=== PATIENT | female | born 1960 | race Caucasian/White ===

== ENCOUNTER 2020-06-27 07:39 | Day surgery (SDC) | payer OTHER, SELFPAY ==
[2020-05-30 14:05] VITALS: BMI 30.5
--- NOTE | 2020-06-27 | GASB_PTH ---
PATIENT: BERONICA CALLAHAN LOC: EN U#:[id number] AGE/SX: 60/F ROOM: RE06/27/[address]: Dr. Remington León MD : 1960 BED: DIS: 06/27/2020 SPEC #: [id number] RECD: 06/27/20 13:45 STATUS: MAURISIO REChase #: [id number] TARA: 06/27/20 00:[address]: Remington León DEPT: SURGICAL PATHOLOGY RECD BY: Franklin Reynoso ENTERED: 06/28/20 08:39 SP TYPE: Gastric Bx OTHR DR: Dr. Farhana Stauffer, DO Tissues: Gastric mucous membrane Procedures: Surgery Specimen Level IV HEADER OPERATION: Colonoscopy, EGD ([facility]) PRE-OP DIAGNOSIS: Abdominal pain, screening TISSUE SUBMITTED: Antral biopsy for H. pylori and pathology MICROSCOPIC DIAGNOSIS Gastric antrum, biopsy: Chronic gastritis. AM:terrie 06/29/20 COMMENT The results of immunohistochemistry for Helicobacter pylori will be reported separately ([id number]). MICROSCOPIC DESCRIPTION Slides are reviewed. GROSS DESCRIPTION Received in fixative is one container labeled with the patient's name and designated antral biopsy. The specimen consists of one irregular fragment of light pisano soft tissue that measures 0.5 x 0.3 x 0.1 cm. The specimen is totally submitted in one cassette. / SJ:rg 06/28/20 TC:3 CPT: 58483
--- NOTE | 2020-06-27 06:28 | HP_ITS ---
Intake Vital Signs 05/30/20 Height 5 ft 3.5 in 05/30/20 Weight: 175 lb 05/30/20 BP 151/92 H 05/30/20 Blood Pressure Location Rt brachial 05/30/20 Position Sitting 05/30/20 Respiration 16 Intake Visit Reasons: EGD/ CSCOPE Chief Complaint: egd/c-scope Take Out Waitress Required: No Is patient in pain?: No Allergies No Known Allergies Allergy (Unverified 05/30/20 14:05) Medications omeprazole 20 mg capsule,delayed release ea PO 05/30/20 [History Confirmed 05/30/20] sucralfate 1 gram tablet PO 05/30/20 [History Confirmed 05/30/20] [facility] Medical History Basal cell carcinoma (Acute) Epigastric pain (Acute) Fibroids (Acute) Hemorrhoids (Acute) Surgical History History of breast surgery (Acute) S/P LEEP (Acute) S/P appendectomy (Acute) S/P hysterectomy (Acute) Family History Aunt Diabetes Breast cancer Father Hypertension Social History (Updated 06/01/20 @ 09:[address] Remington León MD) Smoking Status: Never smoker alcohol intake: current alcohol intake frequency: a few times a month HPI HPI Surgical H&P: Yes HPI: BERONICA CALLAHAN, is a 60 F who presents to the office today for Evaluation for endoscopy. I performed a colonoscopy on her back in December 2009. She was noted to have some internal hemorrhoids as well as external hemorrhoids. She had no lesions and I did not even mention Any diverticular disease. Patient had recently been to the emergency department with a complaint of intermittent epigastric abdominal pain over the last several months. And pressure-like in nature comes and goes. She denies any fever chills weight loss or radiation of her pain. She has had no nausea vomiting diarrhea. She has never had an EGD. Most recent hemoglobin completed on 05/24/2020 was 12.8. Platelet count was slightly lower at 130 she had a normal WBC count. When she traveled to the emergency department she had a CAT scan of her abdomen and pelvis which was negative for any acute intra-abdominal or pelvic abnormalities. She did have a 7 mm cyst in the pancreatic head. She was subsequently sent home on Carafate and omeprazole. ROS General General: No weight change, appetite, fatigue, colon cancer, breast cancer or weakness HEENT HEENT: No difficulty swallowing, eye injury, eye surgery, swollen glands or hoarseness Skin Skin: No rash or changing moles Breast Breast: No left breast lump, right breast lump, nipple discharge, breast pain, abnormal mammogram, abnormal US or breast enlargement Musc Musculoskeletal: No back problems, arthritis, rheumatoid arthritis, gout or joint pain Cardio Cardiovascular: No murmur, pacemaker, heart disease, atrial fibrillation, high blood pressure, heart attack, heart stent, palpitations, shortness of breat with exertion or chest pain Psych Psychiatric: No depression, anxiety or hearing voices Resp Respiratory: No shortness of breath, No sleep apnea, No cough, No COPD, No asthma, No emphysema, No wheezing Gastro Gastrointestinal: Yes abdominal pain, No nausea or vomiting, No diarrhea, Yes constipation, No blood in stool, No acid reflux, Yes hemorrhoids, No ulcers, No gallbladder problem, No black,tarry stools Bruno Hematologic: No blood thinners, No blood disorders, No bleeding, No anemia, No blood clots Neuro Neurologic: No system reviewed and no additional complaints, except as docu, No as per HPI, No abnormal walking, No abnormal hearing, No abnormal movements, No abnormal speech, No behavioral changes, No burning sensations, No confusion, No seizure-like activity, No unsteadiness, No dizziness, No localized weakness, No frequent falls, No headache(s), No lack of coordination, No loss of vision, No memory loss, No numbness, No other visual disturbances, No radiating pain, No restless legs, No sensory deficit, No fainting, No tingling, No tremor(s), No weakness, No other Exam Const General: no acute distress, well developed, well hydrated Orientation: oriented to person, oriented to place, oriented to time [facility] Head: normocephalic, atraumatic Ears: external ears normal Mouth: moist mucous membranes Eyes Sclera: sclerae normal Pupils: normal by confrontation Neck Neck: no lymphadenopathy noted Neck mass: No Thyroid: thyroid normal, symmetrical Chest Chest palpation & inspection: normal inspection of the chest Breast Palpation: No nipple discharge Resp Effort & Inspection: normal respiratory effort Auscultation: clear to auscultation bilaterally Percussion: percussion normal Cardio Rate: regular rate Rhythm: regular rhythm Heart Sounds: no murmurs GI Palpation: soft, no hepatosplenomegaly, no masses, nontender Rectal Exam: other Other: Rectal exam deferred. Extrem General: normal to inspection, no clubbing, cyanosis or edema Assessment & Plan Problems 1. Encounter for screening colonoscopy Z12.11 2. Epigastric abdominal pain R10.13 Plan I have discussed the above with the patient. I have offered the patient colonoscopy As well as an EGD for evaluation. I have explained the risks/benefits of the procedure and described the procedure. I have discussed the risks with the patient, including but not limited to: infection, bleeding, perforation of the GI tract requiring emergency surgery, inability to complete the procedure, injury to any internal organs, complications of anesthesia, etc. - the patient understands and agrees to proceed. I have answered all the patient's questions to the patient's satisfaction and the patient has no further questions. The patient has been given instructions for the colon cleansing preparation. Coding Level of Care Code Off vis,new,level 3 Diagnoses Encounter for screening colonoscopy Z12.11 Epigastric abdominal pain R10.13 COVID (Procedure Consent) Procedure Criteria Procedure Criteria: Yes Elective The surgeon/proceduralist and patient have discussed in detail the risk of exposure to and/or potential harm posed by the COVID-19 virus with having a surgery/procedure at this time versus the risk of? delaying the surgery/procedure. It is not possible to know either the risk of delaying the surgery or procedure or chance of getting an infection with perfect accuracy, but a joint decision was made between the patient and the surgeon/proceduralist ?to proceed at this time with the scheduled surgery/procedure as indicated on the consent form. I have re-examined the patient. There are no clinical changes since date of exam.
[2020-06-27 08:11] VITALS: BP 155/89; PULSE 87; RESP 16; TEMP 36.5; O2SAT 100
[2020-06-27] MEDS: Lactated Ringers 1,000 ML 100 ML IV (08:25)
--- NOTE | 2020-06-27 09:00 | IMM_PTH ---
PATIENT: BERONICA CALLAHAN LOC: EN U#:[id number] AGE/SX: 60/F ROOM: RE06/27/[address]: Dr. Remington León MD : 1960 BED: DIS: 06/27/2020 SPEC #: [id number] RECD: 06/28/20 08:40 STATUS: SOUAditya REQ #: [id number] TARA: 06/27/20 09:[address]: Remington León DEPT: IMMUNOHISTOCHEMISTRY RECD BY: Selma Cheney ENTERED: 06/28/20 08:40 SP TYPE: IMMUNO OTHR DR: Dr. Farhana Stauffer, DO Tissues: Stomach, NOS Procedures: H Pylori (initial) PHYSICIAN & INSTITUTION [place] [id number] SPECIMEN INFORMATION: Tissue Source: Antral biopsy Clinical Info: Abdominal pain; screening Specimen Number: [id number] CPT code: 71106 METHODOLOGY: Deparaffinized sections of prefer/formalin-fixed tissue or PAP/DQ stained slides are incubated with monoclonal/polyclonal antibodies/oligonucleotide probes. Localization is made via biotin free immunoperoxidase method. Appropriate controls are performed and reacted as expected. Results on target cell population are indicated in the following table: RESULTS: ANTIBODY / CLONE RESULT H Pylori (polyclonal) negative These tests were developed and their performance characteristics determined by [facility]. They may not have been cleared or approved by the U.S. Food and Drug Administration. The FDA has determined that such clearance or approval is not necessary. INTERPRETATION: Antral biopsy: Negative for Helicobacter pylori organisms. AM:terrie 06/29/20
[2020-06-27 09:24] VITALS: BP 121/73; BP 155/89; PULSE 88; RESP 18; TEMP 36.7; O2SAT 99
--- NOTE | 2020-06-27 09:25 | OP.EGD_ITS ---
Patient Name: Negar Denis Procedure Date: 06/27/2020 8:54 AM Date of : 1960 Age: 60 Procedure: Upper GI endoscopy Indications: Epigastric abdominal pain Providers: Remington León MD Referring MD: Remington León MD Medicines: See the Anesthesia note for documentation of the administered medications Patient Profile: This is a 60 year old female. Refer to note in patient chart for documentation of history and physical. Complications: No immediate complications. Procedure: Pre-Anesthesia Assessment: - Prior to the procedure, a History and Physical was performed, and patient medications and allergies were reviewed. The patient's tolerance of previous anesthesia was also reviewed. The risks and benefits of the procedure and the sedation options and risks were discussed with the patient. All questions were answered, and informed consent was obtained. Prior Anticoagulants: The patient has taken no previous anticoagulant or antiplatelet agents. ASA Grade Assessment: II - A patient with mild systemic disease. After reviewing the risks and benefits, the patient was deemed in satisfactory condition to undergo the procedure. After obtaining informed consent, the endoscope was passed under direct vision. Throughout the procedure, the patient's blood pressure, pulse, and oxygen saturations were monitored continuously. The gastroscope was introduced through the mouth, and advanced to the second part of duodenum. The upper GI endoscopy was accomplished without difficulty. The patient tolerated the procedure well. Scope In: 9:05:57 AM Scope Out: 9:08:32 AM Total Procedure Duration Time 0 hours 2 minutes 35 seconds Findings: The examined esophagus was normal. No biopsies or other specimens were collected for this exam. The Z-line was regular and was found 40 cm from the incisors. Localized minimal inflammation characterized by erythema was found in the prepyloric region of the stomach. Biopsies were taken with a cold forceps for Helicobacter pylori testing. The examined duodenum was normal. No biopsies or other specimens were collected for this exam. Impression: - Normal esophagus. No specimens collected. - Z-line regular, 40 cm from the incisors. - Gastritis. Biopsied. - Normal examined duodenum. No specimens collected. Recommendation: - Discharge patient to home. - Resume previous diet. - Continue present medications. - Await pathology results. - Repeat upper endoscopy (date not yet determined) for surveillance. - Telephone my office for pathology results in 1 week. Procedure Code(s): --- Professional --- 56923, Esophagogastroduodenoscopy, flexible, transoral; with biopsy, single or multiple Diagnosis Code(s): --- Professional --- K29.70, Gastritis, unspecified, without bleeding R10.13, Epigastric pain CPT copyright 2017 [employer]. All rights reserved. The codes documented in this report are preliminary and upon finisher accordion review may be revised to meet current compliance requirements. MD Remington Lazo MD 06/27/2020 9:24:56 AM This report has been signed electronically. Number of Addenda: 0 Note Initiated On: 06/27/2020 8:54 AM
--- NOTE | 2020-06-27 09:25 | OP.CCLET_ITS ---
06/27/2020 Farhana Stauffer Do Re : Upper GI endoscopy procedure for Negar Denis Dear Dr. Stauffer This procedure was performed on Saturday, June 27, 2020. My impressions and recommendations are as follows: Impressions : - Normal esophagus. No specimens collected. - Z-line regular, 40 cm from the incisors. - Gastritis. Biopsied. - Normal examined duodenum. No specimens collected. Recommendations : - Discharge patient to home. - Resume previous diet. - Continue present medications. - Await pathology results. - Repeat upper endoscopy (date not yet determined) for surveillance. - Telephone my office for pathology results in 1 week. My findings are described in the full procedure note, which is enclosed. If I can be of further assistance, please feel free to contact me at Doctor phone number(s): , Fax: [phone], Work: . Sincerely, MD Remington Lazo MD 06/27/2020 9:24:56 AM This report has been signed electronically.
--- NOTE | 2020-06-27 09:27 | OP.COLON_ITS ---
Patient Name: Negar Denis Procedure Date: 06/27/2020 9:08 AM Date of : 1960 Age: 60 Procedure: Colonoscopy Indications: Screening for colorectal malignant neoplasm Providers: Remington León MD Referring MD: Remington León MD Medicines: See the Anesthesia note for documentation of the administered medications Patient Profile: This is a 60 year old female. Refer to note in patient chart for documentation of history and physical. Last Colonoscopy: more than 10 years ago. Complications: No immediate complications. Procedure: Pre-Anesthesia Assessment: - Prior to the procedure, a History and Physical was performed, and patient medications and allergies were reviewed. The patient's tolerance of previous anesthesia was also reviewed. The risks and benefits of the procedure and the sedation options and risks were discussed with the patient. All questions were answered, and informed consent was obtained. Prior Anticoagulants: The patient has taken no previous anticoagulant or antiplatelet agents. ASA Grade Assessment: II - A patient with mild systemic disease. After reviewing the risks and benefits, the patient was deemed in satisfactory condition to undergo the procedure. After I obtained informed consent, the scope was passed under direct vision. Throughout the procedure, the patient's blood pressure, pulse, and oxygen saturations were monitored continuously. The adult colonoscope was introduced through the anus and advanced to the cecum, identified by appendiceal orifice and ileocecal valve. The colonoscopy was performed without difficulty. The patient tolerated the procedure well. The quality of the bowel preparation was good. Scope In: 9:10:07 AM Scope Withdrawal Time 0 hours 6 minutes 11 seconds Scope Out: 9:20:36 AM Total Procedure Duration Time 0 hours 10 minutes 29 seconds Findings: Non-bleeding internal hemorrhoids were found during retroflexion. The hemorrhoids were Grade I (internal hemorrhoids that do not prolapse). A few small-mouthed diverticula were found in the sigmoid colon and descending colon. No biopsies or other specimens were collected for this exam. The exam was otherwise without abnormality. Impression: - Non-bleeding internal hemorrhoids. - Diverticulosis in the sigmoid colon and in the descending colon. No specimens collected. - The examination was otherwise normal. Recommendation: - Discharge patient to home. - Resume previous diet. - Continue present medications. - Repeat colonoscopy in 10 years for screening purposes. - Return to primary care physician in 1 week. Procedure Code(s): --- Professional --- 21064, Colonoscopy, flexible; diagnostic, including collection of specimen(s) by brushing or washing, when performed (separate procedure) Diagnosis Code(s): --- Professional --- Z12.11, Encounter for screening for malignant neoplasm of colon K64.0, First degree hemorrhoids K57.30, Diverticulosis of large intestine without perforation or abscess without bleeding CPT copyright 2017 [employer]. All rights reserved. The codes documented in this report are preliminary and upon terminal operations supervisor review may be revised to meet current compliance requirements. MD Remington Lazo MD 06/27/2020 9:27:31 AM This report has been signed electronically. Number of Addenda: 0 Note Initiated On: 06/27/2020 9:08 AM
--- NOTE | 2020-06-27 09:28 | OP.CCLET_ITS ---
06/27/2020 Farhana Stauffer Do Re : Colonoscopy procedure for Negar Denis Dear Dr. Stauffer This procedure was performed on Saturday, June 27, 2020. My impressions and recommendations are as follows: Impressions : - Non-bleeding internal hemorrhoids. - Diverticulosis in the sigmoid colon and in the descending colon. No specimens collected. - The examination was otherwise normal. Recommendations : - Discharge patient to home. - Resume previous diet. - Continue present medications. - Repeat colonoscopy in 10 years for screening purposes. - Return to primary care physician in 1 week. My findings are described in the full procedure note, which is enclosed. If I can be of further assistance, please feel free to contact me at Doctor phone number(s): , Fax: [phone], Work: . Sincerely, MD Remington Lazo MD 06/27/2020 9:27:31 AM This report has been signed electronically.
[2020-06-27 09:30] VITALS: BP 122/68; BP 155/89; PULSE 82; RESP 16; O2SAT 100
[2020-06-27 09:35] VITALS: BP 113/67; BP 155/89; PULSE 84; RESP 16; O2SAT 100
[2020-06-27 09:36] VITALS: BP 121/92; BP 155/89; PULSE 87; RESP 16; TEMP 36.1; O2SAT 100
[2020-06-27 09:57] VITALS: BP 155/89
== END 2020-06-27 09:58 | disposition home or self-care (01) ==
LOC: EN 07:54 → AC 07:54
PROVIDERS: PCP Family Medicine; Referring Provider Surgery; Visit Provider Surgery
PROC: 0DJD8ZZ Inspection of Lower Intestinal Tract, Via Natural or Artificial Opening Endoscopic (ICD-10-PCS; CPT 45378; principal; 2020-06-27 08:55)
DX: Z12.11 Encounter for screening for malignant neoplasm of colon (principal); K29.50 Unspecified chronic gastritis without bleeding; K57.30 Diverticulosis of large intestine without perforation or abscess without bleeding; K64.0 First degree hemorrhoids; K21.9 Gastro-esophageal reflux disease without esophagitis; Z79.899 Other long term (current) drug therapy; Z20.828 Contact with and (suspected) exposure to other viral communicable diseases
CPT/HCPCS: 43239; 45378; 87426; 88305; 88342; C9803; J7120; J2405